=== PATIENT | female | born 1995 | race African-American/Black ===

== ENCOUNTER 2021-10-25 00:48 | Emergency (ER) | payer OTHER ==
[~2021-10-25] VITALS: Ht 167.6 cm; Wt 77.6 kg
[2021-10-25] MEDS ORDERED: CEFTRIAXONE SODIUM 500 MG/VIAL IM ONE (04:00)
[2021-10-25] MEDS ORDERED: LIDOCAINE HCL 1% 20ML VIAL (Pyxis) INJ INFIL ONE (04:00)
[2021-10-25 04:44] LABS: BASOPHILS % 0.6 % (0.0-2.0); EOSINOPHILS % 2.9 % (0.0-5.0); HEMATOCRIT. 37.9 % (36.0-48.0); HEMOGLOBIN. 12.8 g/dL (12.0-16.0); MEAN CORPUSCULAR HEMOGLOBIN 31.7 pg (28.0-32.0); MEAN CORPUSCULAR VOLUME 94.4 fL (81.0-99.0); MEAN PLATELET VOLUME 7.9 fl (7.4-10.4); MONOCYTES % 8.6 % (2.0-8.0); NEUTROPHILS % 38.9 % (40.0-76.0); PLATELET 250 x1000/uL (130-400); RED BLOOD CELL COUNT 4.02 mill/uL (4.2-5.4); RED CELL DISTRIBUTION WIDTH 13.2 % (11.6-14.6)
[2021-10-25 04:50] LABS: CHLORIDE 111 mEq/L (98-107)
[2021-10-25 05:16] LABS: HCG SCREEN NEGATIVE
[2021-10-25] MEDS ORDERED: IBUP-2029 MT (05:25)
[2021-10-25] MEDS ORDERED: HYDR28CR29 TP (05:25)
[2021-10-25] MEDS ORDERED: DIPH25CA83 MT (05:25)
[2021-10-25] MEDS ORDERED: DOXY100C5 MT (05:25)
[2021-10-25 05:30] VITALS: BP 122/71
[2021-10-26 09:15] LABS: HIV SCREEN 4G Non Reactive (Non Reactive)
[2021-10-27 05:10] LABS: NEISSERIA GONORRHOEAE NAA Negative (Negative)
[2021-10-31 04:07] LABS: HSV 1 & 2 AB IGM <0.91 Ratio (0.00-0.90)
== END 2021-10-25 05:45 | disposition home or self-care (01) ==
LOC: ER 00:48
DX: R07.89 Other chest pain (principal); N76.89 Other specified inflammation of vagina and vulva; Z20.2 Contact with and (suspected) exposure to infections with a predominantly sexual mode of transmission
CPT/HCPCS: 36415; 71045; 80053; 84484; 84703; 85025; 86592; 86694; 87389; 87491; 87591; 93005; 96372; 99285; J0696; J3490

== ENCOUNTER 2022-09-30 14:23 | Emergency (ER) | payer OTHER ==
[~2022-09-30] VITALS: Ht 167.6 cm; Wt 68.0 kg
[~2022-09-30 14:23] MED LIST: DIPH25CA83 MT; DOXY100C5 MT; HYDR28CR29 TP; IBUP-2029 MT
[2022-09-30 14:32] VITALS: BP 135/84
[2022-09-30] MEDS ORDERED: SILVER SULFADIAZINE 1% CREAM 50GM TOP SCH (15:00)
[2022-09-30] MEDS ORDERED: HYDR-459 PO (15:00)
[2022-09-30] MEDS ORDERED: ESCI-7 PO (15:05)
== END 2022-09-30 15:40 ==
LOC: ER 14:23
DX: Z48.00 Encounter for change or removal of nonsurgical wound dressing (principal)
CPT/HCPCS: 99283; Z7610

== ENCOUNTER 2022-10-14 22:08 | Emergency (ER) | payer MEDICAID, OTHER ==
[~2022-10-14] VITALS: Ht 167.6 cm; Wt 70.5 kg
[~2022-10-14 22:08] MED LIST changes: -DOXY100C5 MT; +ESCI-7 PO; +HYDR-459 PO; -HYDR28CR29 TP
[2022-10-14 22:33] VITALS: BP 128/84
[2022-10-14 23:52] LABS: CLARITY URINE CLEAR (CLEAR); COLOR URINE YELLOW (YELLOW); KETONES URINE TRACE (NEGATIVE); LEUKOCYTE ESTERASE URINE TRACE (NEGATIVE); NITRITE URINE NEGATIVE (NEGATIVE); OCCULT BLOOD URINE 2+ (NEGATIVE); PROTEIN URINE NEGATIVE (NEGATIVE); SPECIFIC GRAVITY URINE 1.021 (1.005-1.030); UROBILINOGEN URINE 0.2 E.U./dL (0.2-1.0)
[2022-10-15] MEDS ORDERED: ACYC200C31 PO (02:18)
[2022-10-17 04:10] LABS: NEISSERIA GONORRHOEAE NAA Negative (Negative)
== END 2022-10-15 02:56 | disposition home or self-care (01) ==
LOC: ER 22:59
DX: N90.89 Other specified noninflammatory disorders of vulva and perineum (principal)
CPT/HCPCS: 81003; 87491; 87591; 99283